=== PATIENT | female | born 1985 | race Caucasian/White ===

== ENCOUNTER 2018-05-19 02:17 | Emergency (ER) | payer OTHER ==
[~2018-05-19] VITALS: Ht 157.5 cm; Wt 55.3 kg
[2018-05-19 02:39] VITALS: BP 133/82
[2018-05-19] MEDS ORDERED: CARBAMAZEPINE200 MG ORAL (02:49)
--- NOTE | 2018-05-19 02:50 | Emergency Room Report ---
History of Present Illness General Chief Complaint: Pain Source: Patient Present Illness HPI This a 32-year-old female with history anxiety. She presents with right jaw pain. This intermittent problem ongoing for urinary half. Usually right side was sometime bilaterally. Sharp lancing pain lasting for a few seconds. Tonight it happened several times. She described it as sharp and severe. From the ear, jaw to the neck. She took 3 Aleve and is better now. Denies any other complaint. No nausea no vomiting. No fever chills. Seen a dentist who said it was not her teeth Allergies: Coded Allergies: No Known Allergies (Unverified , 05/19/18) Patient History Past Medical History: see triage record, old chart reviewed Past Surgical History: none Pertinent Family History: none Social History: Denies: smoking Last Menstrual Period: 05/09/18 Now: No Immunizations: other Reviewed Nursing Documentation: PMH: Agreed; PSxH: Agreed Nursing Documentation-PMH Past Medical History: No Stated History Review of Systems Eye: Denies: eye pain, blurred vision ENT: Denies: ear pain, nose congestion, throat swelling Respiratory: Denies: cough, shortness of breath Cardiovascular: Denies: chest pain, palpitations Gastrointestinal: Denies: abdominal pain, diarrhea, nausea, vomiting Musculoskeletal: Denies: back pain, joint pain Skin: Denies: rash Neurological: Denies: headache, numbness Endocrine: Denies: increased thirst, increased urine Hematologic/Lymphatic: Denies: easy bruising All Other Systems: negative except mentioned in HPI Physical Exam Vital Signs Date Time Temp Pulse Resp B/P (MAP) Pulse Ox O2 Delivery O2 Flow Rate FiO2 05/19/18 02:19 97.9 60 16 135/81 96 Room Air vitals normal Sp02 EP Interpretation: reviewed, normal General Appearance: well appearing, no apparent distress, alert Head: normocephalic, atraumatic Eyes: bilateral eye PERRL, bilateral eye EOMI ENT: hearing grossly normal, normal pharynx Neck: full range of motion, supple, no meningismus Respiratory: chest non-tender, lungs clear, normal breath sounds Cardiovascular #1: regular rate, rhythm, no murmur Gastrointestinal: normal bowel sounds, non tender, no mass, no organomegaly, no bruit, non-distended Musculoskeletal: back normal, gait/station normal, normal range of motion Psychiatric: mood/affect normal Skin: warm/dry Medical Decision Making Diagnostic Impression: Primary Impression: Jaw pain, non-TMJ ER Course Patient with jaw pain. No pain over the TMJ. This may be trigeminal neuralgia. No evidence of any dental abnormality. No evidence of temporal arteritis. No evidence of any abscess. No evidence of ACS. We'll discharge home. Last Vital Signs Date Time Temp Pulse Resp B/P (MAP) Pulse Ox O2 Delivery O2 Flow Rate FiO2 05/19/18 02:39 97.9 81 17 133/82 96 Room Air Status: improved Disposition: HOME, SELF-CARE Condition: Stable Scripts Carbamazepine* (CARBAMAZEPINE*) 200 Mg Tablet 200 MG ORAL BID, #60 TAB Prov: Karl Lanza MD 05/19/18 Additional Instructions: Follow-up with your DrDamir within a week. Return if symptom worsen. Karl Lanza MD May 19, 2018 02:50
[2018-05-19 02:54] VITALS: BP 131/83
== END 2018-05-19 02:54 | disposition home or self-care (01) ==
LOC: EMR 02:41
DX: R68.84 Jaw pain (principal); R51 Headache; M54.2 Cervicalgia; F41.9 Anxiety disorder, unspecified
CPT/HCPCS: 99282